=== PATIENT | female | born 1970 | race Caucasian/White ===

== ENCOUNTER 2017-07-31 | Emergency (ER) | payer OTHER ==
[~2017-07-31] VITALS: Ht 172.7 cm; Wt 99.7 kg
[2017-07-31] MEDS ORDERED: ETOMIDATE 2 MG/ML 10 ML VIAL IVP ONE ×2 (00:02→01:45)
[2017-07-31] MEDS ORDERED: VECURONIUM BROMIDE 10 MG/VIAL IVP ONE (00:02)
[2017-07-31] MEDS ORDERED: IOVERSOL 350 MG/ML 100 ML VIAL ONE (00:10)
[2017-07-31] MEDS ORDERED: SODIUM CHLORIDE 0.9% 100 ML ONE (00:10)
[2017-07-31] MEDS ORDERED: 0.9% SODIUM CHLORIDE 10 ML SYRINGE IVP PRN (00:15)
[2017-07-31] MEDS ORDERED: OXYGEN THERAPY IH SCH (00:15)
[2017-07-31] MEDS ORDERED: ALTEPLASE PER STROKE PROTOCOL CLINICAL ONE (00:30)
[2017-07-31 00:33] LABS: BASOPHILS % (AUTO) 0.8 % (0.0-2.0); EOSINOPHILS % (AUTO) 0.7 % (1.0-6.0); HEMATOCRIT 52.5 % (36-46); HEMOGLOBIN 17.1 g/dL (12.0-16.0); LYMPHOCYTES # (AUTO) 2.5 K/uL (1.0-4.8); LYMPHOCYTES % (AUTO) 13.5 % (22.0-44.0); MEAN CORPUSCULAR HEMOGLOBIN 27.2 pg (26.0-34.0); MEAN CORPUSCULAR HGB CONC 32.6 G/dL (31.0-37.0); MEAN CORPUSCULAR VOLUME 83 fL (80-100); MONOCYTES # (AUTO) 1.4 K/uL (0.1-1.0); MONOCYTES % (AUTO) 7.4 % (2.0-9.0); NEUTROPHILS # (AUTO) 14.2 K/uL (1.8-7.7); NEUTROPHILS % (AUTO) 77.6 % (40.0-70.0); PLATELET COUNT (AUTO) 298 K/uL (150-450); RED BLOOD CELL COUNT(AUTO) 6.31 MIL/uL (4.00-5.20); RED CELL DISTRIBUTION WIDTH 14.2 % (11.5-14.5)
[2017-07-31 00:43] LABS: ANION GAP 12 mmol/L (8-16); CALCIUM, TOTAL 9.6 mg/dL (8.8-10.5); CARBON DIOXIDE 23 mmol/L (22-29); CHLORIDE 103 mmol/L (98-107); CREATININE 0.74 mg/dL (0.60-1.30); GLOMERULAR FILTR. RATE CALC > 60 mL/min (>60); GLUCOSE,RANDOM 322 mg/dL (70-110); SODIUM SERUM 138 mmol/L (136-145); UREA NITROGEN, BLOOD 16 mg/dL (7-18)
[2017-07-31] MEDS ORDERED: ALTEPLASE IV ONE ×2 (00:45)
[2017-07-31] MEDS ORDERED: WATER FOR INJECTION STERILE IV ONE ×2 (00:45)
[2017-07-31 00:46] LABS: PROTHROMBIN TIME 10.4 SEC (9.4-11.6)
[2017-07-31 00:53] LABS: TROPONIN I 0.02 ng/mL (0.00-0.05)
[2017-07-31 00:59] LABS: B-TYPE NATRIURETIC PEPTIDE 88 pg/mL (0-100)
[2017-07-31] MEDS ORDERED: LABETALOL HCL 5 MG/ML 20 ML VIAL IVP ONE ×2 (01:00)
[2017-07-31 01:08] LABS: ALANINE AMINOTRANSFERASE 28 U/L (12-78); ALBUMIN 3.1 g/dL (3.4-5.0); ALKALINE PHOSPHATASE 114 U/L (46-116); ASPARTATE AMINOTRANSFERASE 30 U/L (15-37); BILIRUBIN,TOTAL 0.8 mg/dL (0.1-1.0); CREATINE KINASE MB 2.1 ng/mL (0-5); CREATINE KINASE, TOTAL 250 U/L (26-192); LIPASE 171 U/L (73-393); TOTAL PROTEIN, SERUM 8.4 g/dL (6.4-8.2)
[2017-07-31 01:25] LABS: APPEARANCE,URINE CLEAR (CLEAR); GLUCOSE, URINE (UA) >=1000 mg/dL (NEGATIVE); KETONES,URINE 15 mg/dL (NEGATIVE); LEUKOCYTE ESTERASE ,URINE NEGATIVE (NEGATIVE); NITRATE,URINE NEGATIVE (NEGATIVE); OCCULT BLOOD,URINE TRACE (NEGATIVE); PH,URINE 5.5 (5.0-8.0); PROTEIN,URINE SEE CONFIRM (NEGATIVE)
[2017-07-31 01:27] LABS: BILIRUBIN,URINE PRELIM. POSITIVE (NEGATIVE)
[2017-07-31] MEDS ORDERED: LORazepam 2 MG/ML VIAL ONE (01:27)
[2017-07-31 01:29] LABS: AMPHET/METH SCREEN,URINE NEGATIVE (NEGATIVE); BARBITURATE SCREEN, URINE NEGATIVE (NEGATIVE); BENZODIAZEPINES SCREEN,URINE NEGATIVE (NEGATIVE); CANNABINOID SCREEN,URINE NEGATIVE (NEGATIVE); COCAINE SCREEN,URINE NEGATIVE (NEGATIVE); METHADONE SCREEN, URINE NEGATIVE (NEGATIVE); OPIATE SCREEN,URINE NEGATIVE (NEGATIVE); PHENCYCLIDINE SCREEN,URINE NEGATIVE (NEGATIVE)
[2017-07-31] MEDS ORDERED: RAPID SEQUENCE KIT [RSI] 1 EACH KIT ONE (01:29)
[2017-07-31] MEDS ORDERED: ONDANSETRON HCL 4 MG/2 ML VIAL IVP ONE (01:30)
[2017-07-31] MEDS ORDERED: LORazepam 2 MG/ML VIAL IVP ONE (01:30)
[2017-07-31 01:31] LABS: LACTIC ACID 0.9 mmol/L (0.4-2.0)
[2017-07-31] MEDS ORDERED: SUCCINYLCHOLINE CHLORIDE 20 MG/ML 10 ML VIAL ONE (01:31)
[2017-07-31 01:33] LABS: SULFOSALICYLIC ACID,URINE 3+ (Negative)
[2017-07-31 01:39] LABS: ACETONE,BLOOD NEGATIVE (NEGATIVE)
[2017-07-31 01:42] LABS: BACTERIA,URINE Rare /HPF (None Seen); RBC,URINE 0-2 /HPF (0-2); WBC,URINE 0-2 /HPF (0-5)
[2017-07-31 01:43] LABS: AMORPHOUS SEDIMENT,UR Moderate /LPF (None Seen); SQUAMOUS EPITHELIAL CELL,UR Moderate /LPF (None Seen)
[2017-07-31] MEDS ORDERED: NICARDipine 20 MG/DEXT,ISO-OSM 200 ML IV PRN (02:30)
[2017-07-31] MEDS ORDERED: PROPOFOL 1000 MG/ISO-OSM 100 ML IV ONE (02:36)
[2017-07-31] MEDS ORDERED: PROPOFOL 1000 MG/ISO-OSM 100 ML IV PRN (02:45)
[2017-07-31 03:21] LABS: ABG BASE EXCESS -4.5 mmol/L (-2.0-3.0); ABG CARBOXYHEMOGLOBIN 1.4 % (0.0-1.5); ABG HCO3 21.5 mmol/L (22.0-26.0); ABG METHEMOGLOBIN 0.2 % (0.0-1.5); ABG OXYGEN CONTENT 22.1 mL/dL (15.0-23.0); ABG OXYGEN SATURATION 96.3 % (95.0-98.0); ABG OXYHEMOGLOBIN 94.8 % (94.0-100.0); ABG PCO2 36 mmHg (35-45); ABG PH 7.382 (7.35-7.450); ABG TOTAL HEMOGLOBIN 16.6 G/dL (12.0-18.0); O2 DEVICE,BLOOD GAS VENTILATOR (ROOM AIR); PO2, ARTERIAL BG 82.6 mmHg (88.0-96.0); SITE, BLOOD GAS RT RADIAL; SOURCE, BLOOD GAS ARTERIAL; TEMPERATURE, FAHRENHEIT, BG 98.6 FAHREN (96.0-98.6); VT, ABG 600 ml
[2017-07-31 03:27] VITALS: BP 177/88
== END 2017-07-31 03:45 | disposition short-term general hospital (02) ==
LOC: EMS 00:01
DX: I61.9 Nontraumatic intracerebral hemorrhage, unspecified (principal); I63.9 Cerebral infarction, unspecified; F17.210 Nicotine dependence, cigarettes, uncomplicated
CPT/HCPCS: 31500; 36415; 37195; 51702; 70450 ×2; 70496; 71045; 80053; 80307; 81001; 81002; 82009; 82140; 82550; 82553; 82805; 83605; 83690; 83880; 84484; 85025; 85610; 85730; 87040; 93005; 96365; 96374; 96375; 99291; 99292; G0480; J0330; J2060; J2704; J2997; J3490 ×3; J7050; Q9967; Z7610; 94002